=== PATIENT | male | born 1945 | race Caucasian/White ===

== ENCOUNTER 2017-02-18 22:12 | Emergency (ER) | payer OTHER ==
--- NOTE | 2017-02-18 22:48 | EDPHY ---
H & P Stated Complaint: Dog bite, facial lac HPI/ROS: Chief complaint: Dog bite to right side of forehead History of present illness: This is a 72-year-old male who presents to the emergency department for evaluation of a dog bite to the right side of his forehead. Patient was helping his dog up the stairs when he got scared and snapped at him biting the right side of his head. He has noted multiple wounds. There has been bleeding which has been difficult to control because he is on Coumadin. He reports the dog is healthy and up-to-date on immunizations. Patient states he is up-to-date on his tetanus. He denies other injuries from this incident. - Personal History Current Tetanus/Diphtheria Vaccine: Unsure - Medical/Surgical History Hx Asthma: No Hx Chronic Respiratory Disease: No Hx Diabetes: No Hx Cardiac Disease: No Hx Renal Disease: No Hx Cirrhosis: No Hx Alcoholism: No Hx HIV/AIDS: No Hx Splenectomy or Spleen Trauma: No Other PMH: HTN, CVA, prostate/bladder problem. depression, - Social History Smoking Status: Current every day smoker - Physical Exam Exam: General Appearance: Alert, nontoxic. Eyes: Pupils equal and round no injection. EOM intact without discomfort. Respiratory: Chest is non tender, lungs are clear to auscultation. Cardiac: regular rate and rhythm Musculoskeletal: Neck is supple and non tender. Extremities have full range of motion and are non tender. Skin: There is a total of 3 cm worth of laceration to the right temporal region. No other acute wounds noted. Constitutional: Initial Vital Signs Temperature (C) 36.3 C 02/18/17 22:13 Heart Rate 88 02/18/17 22:13 Respiratory Rate 18 02/18/17 22:13 Blood Pressure 129/61 H 02/18/17 22:13 O2 Sat (%) 96 02/18/17 22:13 O2 Delivery Mode Room Air Allergies/Adverse Reactions: Penicillins Allergy (Verified 02/18/17 22:18) Home Medications: Medication Instructions Recorded Bactrim DS 02/18/17 Cartia Xt 02/18/17 Diltiazem 02/18/17 Doxycycline Hyclate 100 mg PO BID #14 tab 02/18/17 Flomax 02/18/17 Warfarin Sodium 02/18/17 Wellbutrin Sr 02/18/17 Medical Decision Making Procedures: Procedure: Laceration repair. Verbal consent was obtained from the patient. The 3 cm laceration on the right temporal region was anesthetized in the usual fashion using lidocaine with epinephrine to help control bleeding. The wound was irrigated, draped and explored to its base with a gloved finger. There were no deep structures involved. No tendon injury was identified. The wound was repaired with 5 0 Prolene, 10 simple interrupted sutures. The wound repair was [ ]. The procedure was performed by myself. Wound was dressed with Xeroform gauze and a slight pressure dressing to ensure wound bleeding was controlled. ED Course/Re-evaluation: Patient seen in conjunction with my secondary supervising physician Dr. Abdifatah Olivas. Patient presents to the emergency department for a dog bite to his right temporal region. This appears to be isolated soft tissue injury. This is complicated by the fact that he is on Coumadin and his INR is supratherapeutic above 5. Wound is anesthetized with lidocaine with epinephrine. It is repaired. Xeroform dressing with pressure is applied. Observed without rebleeding. He is asked to omit his next 2 doses of Coumadin and follow up with his primary care doctor tomorrow to discuss Coumadin dosing and recheck of INR. As this is a dog bite he does need to be covered with antibiotics. He is currently on Bactrim, apparently for life for a MRSA infection in his ankle. He is allergic to penicillins. We have decided to place patient on doxycycline. However, he has an infectious disease doctor, he has asked to call his infectious disease doctor tomorrow to discuss antibiotics to ensure that he does not want to change this. Home care is discussed. Strict return precautions are given. The patient voiced understanding and agreement with plan. Differential Diagnosis: Included but not limited to soft tissue injury, coagulopathy, unlikely bony fracture intracranial injury - Data Points Medications Given: Discontinued Medications Doxycycline Hyclate (Vibramycin 100 Mg Prepack#2) 1 btl TAKEHOME EDNOW ONE Stop: 02/18/17 23:35 Last Admin: 02/18/17 23:51 Dose: 1 btl Doxycycline Hyclate (Doxycycline Hyclate) 100 mg PO EDNOW ONE PRN Reason: Protocol Stop: 02/18/17 23:35 Last Admin: 02/18/17 23:51 Dose: 100 mg Departure - Departure Disposition: Home, Routine, Self-Care Clinical Impression: Dog bite Qualifiers: Encounter type: initial encounter Qualified Code(s): W54.0XXA - Bitten by dog, initial encounter Condition: Good Instructions: Animal Bite (ED) Additional Instructions: Do not take your next two doses of Coumadin. Please follow-up with your primary care doctor tomorrow and let them know that your Coumadin level tonight was 5.23 Please call your infectious disease doctor tomorrow to discuss the additional antibiotics that you were started on for the dog bite. You were given doxycycline. Please ask your infectious disease doctor how long he would like you to stay on it. You can remove it dressing it tomorrow, apply antibacterial ointment and re- dress it Stitches need to be removed in 7-10 days If bleeding recurs or new symptoms develop return immediately to the emergency room Referrals: Unknown,Unknown [Unknown] - As per Instructions [facility],. [Clinic] - As per Instructions Prescriptions: Doxycycline Hyclate 100 mg PO BID #14 tab
[2017-02-18 22:55] LABS: PROTIME(PATIENT) 47.4 SEC (12.0-15.0)
[2017-02-18 23:19] LABS: INR 5.23 (0.83-1.16)
[2017-02-18 23:29] VITALS: BP 130/79; PULSE 74; RESP 16; TEMP 97.9; O2SAT 93
[2017-02-18] MEDS ORDERED: DOXYCYCLINE 100 MG PREPACK#2 BTL TAKEHOME ONE (23:34)
[2017-02-18] MEDS ORDERED: DOXYCYCLINE HYCLATE 100 MG CAP/TAB PO ONE (23:34)
== END 2017-02-18 23:53 | disposition home or self-care (01) ==
PROC: 0HQ1XZZ Repair Face Skin, External Approach (ICD-10-PCS; principal; 2017-02-18)
DX: S01.81XA Laceration without foreign body of other part of head, initial encounter (principal); I10 Essential (primary) hypertension; F17.200 Nicotine dependence, unspecified, uncomplicated; Z86.73 Personal history of transient ischemic attack (TIA), and cerebral infarction without residual deficits; Z79.01 Long term (current) use of anticoagulants; W54.0XXA Bitten by dog, initial encounter

== ENCOUNTER 2017-02-20 12:18 | Emergency (ER) | payer OTHER ==
[2017-02-20 12:32] VITALS: TEMP 98.2
--- NOTE | 2017-02-20 12:53 | EDPHY ---
H & P Time Seen by Provider: 02/20/17 12:50 HPI/ROS: CHIEF COMPLAINT: Facial swelling HISTORY OF PRESENT ILLNESS: The patient is a 72-year-old male on Coumadin who presents to the emergency department with redness to his face. The patient sustained a dog bite from his own dog on 02/18/2017. He was seen in the emergency department. He does was cleaned and repaired with sutures. The patient was placed on doxycycline. The patient was noted to have an elevated INR 5. He was told to discontinue his Coumadin that evening and follow up with his primary care physician. The patient states he forgot to stop his Coumadin and took his regular dose on 02/18/2017. He has had increased swelling over his right brow laceration and starting his right eye. There is no significant bleeding from his wound. He is not lightheaded or dizzy. He denies headache. No visual change. No eye pain. The patient states he spoke with his primary care physician on February 19 and he was told not take his Coumadin for 3 days. He is on day 2 of 3. REVIEW OF SYSTEMS: My complete review of systems is negative except as mentioned in the HPI. Past Medical/Surgical History: Includes hypertension, CVA, depression, prostate issues Social history: The patient does not smoke. Smoking Status: Current every day smoker Physical Exam: 36.8, 131/79, 86, 18, 97% on room GENERAL: Well-appearing, in no acute distress, alert. HEENT: Patient's right brow laceration appears to be healing well. Sutures are in place. There is no surrounding erythema or warmth. There is no active noted bleeding. The patient has significant ecchymosis around his right eye. He is able to open his right eye but is limited. Conjunctiva is normal. PERRLA. Extraocular to intact. Normal pharynx, no signs of dehydration. NECK: No thyromegaly, no lymphadenopathy, supple. RESPIRATORY: Clear to auscultation bilaterally, no rales, rhonchi or wheezing. CVS: Regular rate and rhythm, no rubs, murmurs, or gallops. ABDOMEN: Soft, nontender, nondistended, no organomegaly. BACK: Normal to inspection, no CVA tenderness. SKIN: Normal color, no rash, warm, dry. No pallor. EXTREMITIES: No pedal edema, no calf tenderness, no Homans sign or cords, no joint swelling. NEURO/PSYCH: Alert and oriented x3, normal mood and affect, normal motor sensory exam. No obvious cranial nerve deficit. Constitutional: Initial Vital Signs Temperature (C) 36.8 C 02/20/17 12:30 Heart Rate 86 02/20/17 12:30 Respiratory Rate 18 02/20/17 12:30 Blood Pressure 131/79 H 02/20/17 12:30 O2 Sat (%) 97 02/20/17 12:30 O2 Delivery Mode Room Air Allergies/Adverse Reactions: Penicillins Allergy (Verified 02/20/17 12:29) Home Medications: Medication Instructions Recorded Bactrim DS 02/18/17 Cartia Xt 02/18/17 Diltiazem 02/18/17 Doxycycline Hyclate 100 mg PO BID #14 tab 02/18/17 Flomax 02/18/17 Warfarin Sodium 02/18/17 Wellbutrin Sr 02/18/17 Tamsulosin HCl 02/20/17 Medical Decision Making ED Course/Re-evaluation: The in the emergency department I discussed possible use with the patient. I discussed the swelling around his eye. I feel this is secondary to his previous wound and internal bleeding. Contributing factor was likely his elevated INR. I will order coags today. His wound was redressed. On recheck patient was doing well. He had no new complaints. 1400: We are awaiting the results of the coags. I called the lab for results. They stated that the test was currently spinning. The patient wishes to leave the emergency department. I stated that I was hoping the results would be up shortly. 1425: Coags are still pending. The patient and his want to be d/c from the emergency department. They are given warnings prior to leaving. They will return with worsening symptoms. The lab called with critical result. The patient's INR is 5.2. The patient was just leaving the room when I obtained this resolved. I went discussed the result with the patient and his . They will call the patient's primary care physician on Wednesday to determine appropriate dosing for his Coumadin. He will hold his dosing until Wednesday. Differential Diagnosis: My differential includes but is not limited to hematoma, bleeding from elevated INR, coagulopathy, wound infection, cellulitis, abscess, dehiscence - Data Points Laboratory Results: 02/20/17 13:15 PT 47.7 SEC H SEC (12.0-15.0) INR 5.28 H* (0.83-1.16) APTT 58.1 SEC H SEC (23.0-38.0) Departure - Departure Disposition: Home, Routine, Self-Care Clinical Impression: Eye bruise Qualifiers: Encounter type: initial encounter Laterality: right Qualified Code(s): S05.11XA - Contusion of eyeball and orbital tissues, right eye, initial encounter Condition: Good Instructions: Black Eye (ED) Additional Instructions: Return with increasing pain, swelling, visual change, headache or any other concerns. Referrals: Primary, provider [Other] - As per Instructions
[2017-02-20 14:23] LABS: APTT 58.1 SEC (23.0-38.0); PROTIME(PATIENT) 47.7 SEC (12.0-15.0)
[2017-02-20 14:38] VITALS: BP 134/91; PULSE 72; RESP 16; O2SAT 96
[2017-02-20 14:43] LABS: INR 5.28 (0.83-1.16)
== END 2017-02-20 14:38 | disposition home or self-care (01) ==
DX: S05.11XD Contusion of eyeball and orbital tissues, right eye, subsequent encounter (principal); I10 Essential (primary) hypertension; F17.200 Nicotine dependence, unspecified, uncomplicated; Z86.73 Personal history of transient ischemic attack (TIA), and cerebral infarction without residual deficits; Z79.01 Long term (current) use of anticoagulants; W54.0XXD Bitten by dog, subsequent encounter